=== PATIENT | female | born 1980 | race African-American/Black ===

== ENCOUNTER 2017-10-25 14:11 | Emergency (ER) | payer MEDICAID ==
[~2017-10-25] VITALS: Ht 167.6 cm; Wt 80.0 kg
[2017-10-25] MEDS ORDERED: SODIUM CHLORIDE 0.9% 1,000 ML IV ONE (14:30)
[2017-10-25 14:59] VITALS: BP 113/74
== END 2017-10-25 15:45 | disposition left against medical advice (07) ==
LOC: ER 14:40
DX: F10.129 Alcohol abuse with intoxication, unspecified (principal); Y90.9 Presence of alcohol in blood, level not specified
CPT/HCPCS: 99283; J7030

== ENCOUNTER 2018-11-28 00:13 | Emergency (ER) | payer MEDICAID ==
[~2018-11-28] VITALS: Ht 165.1 cm; Wt 105.0 kg
[2018-11-28 06:00] LABS: CHLORIDE 100 mEq/L (98-107)
[2018-11-28 06:10] LABS: EOSINOPHILS % 2.4 % (0.0-5.0); HEMOGLOBIN. 12.6 g/dL (12.0-16.0); LYMPHOCYTES % 28.5 % (20.0-50.0); MEAN CORPUSCULAR HEMOGLOBIN 26.7 pg (28.0-32.0); MEAN CORPUSCULAR VOLUME 82.6 fL (81.0-99.0); MEAN PLATELET VOLUME 8.4 fl (7.4-10.4); MONOCYTES % 12.3 % (2.0-8.0); NEUTROPHILS % 55.8 % (40.0-76.0); PLATELET 460 x1000/uL (130-400); RED BLOOD CELL COUNT 4.72 mill/uL (4.2-5.4); RED CELL DISTRIBUTION WIDTH 16.4 % (11.6-14.6)
[2018-11-28 06:54] LABS: CLARITY URINE TURBID (CLEAR); COLOR URINE DARK YELLOW (YELLOW); KETONES URINE TRACE (NEGATIVE); LEUKOCYTE ESTERASE URINE 1+ (NEGATIVE); NITRITE URINE NEGATIVE (NEGATIVE); OCCULT BLOOD URINE NEGATIVE (NEGATIVE); PROTEIN URINE 1+ (NEGATIVE); SPECIFIC GRAVITY URINE 1.026 (1.005-1.030)
[2018-11-28 07:12] LABS: *BARBITURATES SCREEN URINE NEGATIVE (NEGATIVE); *BENZODIAZEPINES SCREEN URINE NEGATIVE (NEGATIVE); *COCAINE SCREEN URINE NEGATIVE (NEGATIVE); METHADONE URINE SCREEN NEGATIVE (NEGATIVE); OPIATES URINE SCREEN NEGATIVE (NEGATIVE); PHENCYCLIDINE URINE SCREEN NEGATIVE (NEGATIVE)
[2018-11-28 07:18] LABS: *AMPHETAMINES SCREEN URINE PRESUMTIVE POSITIVE (NEGATIVE); CANNABINOID URINE SCREEN PRESUMTIVE POSITIVE (NEGATIVE)
[2018-11-28 08:00] VITALS: BP 120/79
[2018-11-28] MEDS ORDERED: POTASSIUM CHLORIDE 20MEQ TABLET SR PO ONE ×2 (08:21→09:00)
== END 2018-11-28 09:30 | disposition home or self-care (01) ==
LOC: ER 00:13
DX: E11.40 Type 2 diabetes mellitus with diabetic neuropathy, unspecified (principal); E87.6 Hypokalemia; N39.0 Urinary tract infection, site not specified; F15.10 Other stimulant abuse, uncomplicated; F12.90 Cannabis use, unspecified, uncomplicated; J45.909 Unspecified asthma, uncomplicated; I10 Essential (primary) hypertension; F17.200 Nicotine dependence, unspecified, uncomplicated; Z88.5 Allergy status to narcotic agent
CPT/HCPCS: 36415; 80305; 81025; 82962; 93005; 99284

== ENCOUNTER 2018-11-29 07:18 | Emergency (ER) | payer MEDICAID ==
[~2018-11-29] VITALS: Ht 165.1 cm; Wt 104.0 kg
[2018-11-29 07:47] VITALS: BP 139/76
== END 2018-11-29 11:00 | disposition left against medical advice (07) ==
LOC: ER 07:18
DX: Z53.21 Procedure and treatment not carried out due to patient leaving prior to being seen by health care provider (principal)

== ENCOUNTER 2018-11-29 20:12 | Emergency (ER) | payer MEDICAID ==
[~2018-11-29] VITALS: Ht 165.1 cm; Wt 109.0 kg
[2018-11-29 20:53] VITALS: BP 128/89
== END 2018-11-29 20:55 | disposition left against medical advice (07) ==
LOC: ER 20:12
DX: Z53.21 Procedure and treatment not carried out due to patient leaving prior to being seen by health care provider (principal)

== ENCOUNTER 2018-11-30 07:18 | Emergency (ER) | payer MEDICAID ==
[~2018-11-30] VITALS: Ht 172.7 cm; Wt 98.6 kg
[2018-11-30 07:47] VITALS: BP 106/88
== END 2018-11-30 09:32 | disposition left against medical advice (07) ==
LOC: ER 07:40
DX: R51 Headache (principal); Z53.21 Procedure and treatment not carried out due to patient leaving prior to being seen by health care provider

== ENCOUNTER 2020-11-13 12:19 | Emergency (ER) | payer MEDICAID ==
[~2020-11-13] VITALS: Ht 172.7 cm; Wt 89.0 kg
[2020-11-13 13:26] LABS: BASOPHILS % 1.1 % (0.0-2.0); EOSINOPHILS % 1.5 % (0.0-5.0); HEMATOCRIT. 40.8 % (36.0-48.0); HEMOGLOBIN. 13.1 g/dL (12.0-16.0); LYMPHOCYTES % 12.7 % (20.0-50.0); MEAN CORPUSCULAR VOLUME 83.8 fL (81.0-99.0); MEAN PLATELET VOLUME 9.1 fl (7.4-10.4); MONOCYTES % 12.6 % (2.0-8.0); NEUTROPHILS % 72.1 % (40.0-76.0); PLATELET 289 x1000/uL (130-400); RED BLOOD CELL COUNT 4.87 mill/uL (4.2-5.4); RED CELL DISTRIBUTION WIDTH 16.3 % (11.6-14.6)
[2020-11-13 13:37] LABS: CHLORIDE 102 mEq/L (98-107)
[2020-11-13 13:38] LABS: HCG SCREEN NEGATIVE
[2020-11-13 13:42] LABS: ETHANOL BLOOD 17 mg/dL
[2020-11-13 14:06] LABS: CLARITY URINE TURBID (CLEAR); KETONES URINE 1+ (NEGATIVE); LEUKOCYTE ESTERASE URINE 1+ (NEGATIVE); NITRITE URINE NEGATIVE (NEGATIVE); OCCULT BLOOD URINE 3+ (NEGATIVE); PROTEIN URINE 2+ (NEGATIVE); SPECIFIC GRAVITY URINE 1.028 (1.005-1.030)
[2020-11-13 14:11] LABS: COLOR URINE BLOODY (YELLOW)
[2020-11-13] MEDS ORDERED: NITROFURANTOIN 100MG M/M CAPSULE PO ONE (15:15)
[2020-11-13 15:25] LABS: *BARBITURATES SCREEN URINE NEGATIVE (NEGATIVE); *BENZODIAZEPINES SCREEN URINE NEGATIVE (NEGATIVE); *COCAINE SCREEN URINE NEGATIVE (NEGATIVE)
[2020-11-13 15:26] LABS: METHADONE URINE SCREEN NEGATIVE (NEGATIVE); OPIATES URINE SCREEN NEGATIVE (NEGATIVE); PHENCYCLIDINE URINE SCREEN NEGATIVE (NEGATIVE)
[2020-11-13 15:27] LABS: *AMPHETAMINES SCREEN URINE PRESUMTIVE POSITIVE (NEGATIVE); CANNABINOID URINE SCREEN PRESUMTIVE POSITIVE (NEGATIVE)
[2020-11-13] MEDS ORDERED: LORAZEPAM 1MG TABLET PO ONE (20:00)
[2020-11-13] MEDS ORDERED: QUETIAPINE FUMARATE 25MG TABLET PO SCH (21:00)
[2020-11-14] MEDS ORDERED: ACETAMINOPHEN 325MG TABLET PO ONE (02:15)
[2020-11-14 07:30] VITALS: BP 137/88
[2020-11-14] MEDS ORDERED: NITR100C MT (08:00)
== END 2020-11-14 08:26 | disposition home or self-care (01) ==
LOC: ER 12:19
DX: S09.8XXA Other specified injuries of head, initial encounter (principal); F32.9 Major depressive disorder, single episode, unspecified; R26.9 Unspecified abnormalities of gait and mobility; Z76.5 Malingerer [conscious simulation]; I10 Essential (primary) hypertension; F20.9 Schizophrenia, unspecified; J45.909 Unspecified asthma, uncomplicated; F15.10 Other stimulant abuse, uncomplicated; F12.10 Cannabis abuse, uncomplicated; N39.0 Urinary tract infection, site not specified; Z98.890 Other specified postprocedural states; Z88.5 Allergy status to narcotic agent; Z75.1 Person awaiting admission to adequate facility elsewhere; Z91.14 Patient's other noncompliance with medication regimen; Z03.818 Encounter for observation for suspected exposure to other biological agents ruled out; Z59.0 Homelessness; Y04.0XXA Assault by unarmed brawl or fight, initial encounter; Y93.89 Activity, other specified; Y92.89 Other specified places as the place of occurrence of the external cause
CPT/HCPCS: 36415; 71045; 80053; 80305; 80307; 80320; 80329; 81003; 81025; 84703; 85025; 87426; 99285; G0480

== ENCOUNTER 2020-11-14 09:14 | Emergency (ER) | payer MEDICAID ==
[~2020-11-14] VITALS: Ht 165.1 cm; Wt 97.0 kg
[~2020-11-14 09:14] MED LIST: NITR100C MT
[2020-11-14] MEDS ORDERED: OLANZAPINE 10MG TABLET PO SCH (09:45)
[2020-11-14 10:48] LABS: CLARITY URINE CLEAR (CLEAR); COLOR URINE YELLOW (YELLOW); KETONES URINE NEGATIVE (NEGATIVE); LEUKOCYTE ESTERASE URINE NEGATIVE (NEGATIVE); NITRITE URINE NEGATIVE (NEGATIVE); OCCULT BLOOD URINE NEGATIVE (NEGATIVE); PROTEIN URINE NEGATIVE (NEGATIVE); SPECIFIC GRAVITY URINE 1.036 (1.005-1.030)
[2020-11-14 11:20] LABS: *BARBITURATES SCREEN URINE NEGATIVE (NEGATIVE); *BENZODIAZEPINES SCREEN URINE NEGATIVE (NEGATIVE); *COCAINE SCREEN URINE NEGATIVE (NEGATIVE); METHADONE URINE SCREEN NEGATIVE (NEGATIVE); OPIATES URINE SCREEN NEGATIVE (NEGATIVE)
[2020-11-14 11:21] LABS: PHENCYCLIDINE URINE SCREEN NEGATIVE (NEGATIVE)
[2020-11-14 11:49] LABS: BASOPHILS % 1.5 % (0.0-2.0); EOSINOPHILS % 3.4 % (0.0-5.0); HEMATOCRIT. 39.2 % (36.0-48.0); HEMOGLOBIN. 12.6 g/dL (12.0-16.0); LYMPHOCYTES % 25.7 % (20.0-50.0); MEAN CORPUSCULAR HEMOGLOBIN 27.2 pg (28.0-32.0); MEAN CORPUSCULAR VOLUME 84.4 fL (81.0-99.0); MEAN PLATELET VOLUME 9.4 fl (7.4-10.4); MONOCYTES % 14.2 % (2.0-8.0); NEUTROPHILS % 55.2 % (40.0-76.0); PLATELET 278 x1000/uL (130-400); RED BLOOD CELL COUNT 4.65 mill/uL (4.2-5.4); RED CELL DISTRIBUTION WIDTH 16.6 % (11.6-14.6)
[2020-11-14 12:00] LABS: *AMPHETAMINES SCREEN URINE PRESUMTIVE POSITIVE (NEGATIVE); CANNABINOID URINE SCREEN PRESUMTIVE POSITIVE (NEGATIVE)
[2020-11-14 12:01] LABS: CHLORIDE 102 mEq/L (98-107)
[2020-11-14 12:10] LABS: ETHANOL BLOOD < 10 mg/dL
[2020-11-14 12:14] LABS: HCG SCREEN NEGATIVE
[2020-11-14 15:55] VITALS: BP 128/77
== END 2020-11-14 16:00 | disposition home or self-care (01) ==
LOC: ER 09:20
DX: F20.9 Schizophrenia, unspecified (principal); F15.10 Other stimulant abuse, uncomplicated; R45.851 Suicidal ideations; F12.10 Cannabis abuse, uncomplicated; F31.9 Bipolar disorder, unspecified; J45.909 Unspecified asthma, uncomplicated; E66.9 Obesity, unspecified; Z59.0 Homelessness; Z98.890 Other specified postprocedural states; Z68.35 Body mass index [BMI] 35.0-35.9, adult; Z88.5 Allergy status to narcotic agent
CPT/HCPCS: 36415; 80053; 80305; 80307; 80320; 80329; 81003; 81025; 84703; 85025; 99283; G0480

== ENCOUNTER 2021-11-09 11:01 | Emergency (ER) | payer MEDICAID ==
[~2021-11-09] VITALS: Ht 165.1 cm; Wt 80.0 kg
[2021-11-09] MEDS: AZITHROMYCIN 500 MG TABLET PO ONE (14:11)
[2021-11-09] MEDS: CEFTRIAXONE SODIUM 500 MG/VIAL IM ONE (14:11)
[2021-11-09 14:17] LABS: CHLORIDE 103 mEq/L (98-107)
[2021-11-09 14:21] LABS: ETHANOL BLOOD < 10 mg/dL
[2021-11-09 14:24] LABS: HEMATOCRIT. 37.4 % (36.0-48.0); HEMOGLOBIN. 12.4 g/dL (12.0-16.0); MEAN CORPUSCULAR VOLUME 84.8 fL (81.0-99.0); MEAN PLATELET VOLUME 8.5 fl (7.4-10.4); PLATELET 305 x1000/uL (130-400); RED BLOOD CELL COUNT 4.41 mill/uL (4.2-5.4)
[2021-11-09 14:40] LABS: CLARITY URINE CLOUDY (CLEAR); COLOR URINE YELLOW (YELLOW); KETONES URINE NEGATIVE (NEGATIVE); LEUKOCYTE ESTERASE URINE NEGATIVE (NEGATIVE); NITRITE URINE NEGATIVE (NEGATIVE); OCCULT BLOOD URINE NEGATIVE (NEGATIVE); PROTEIN URINE TRACE (NEGATIVE); SPECIFIC GRAVITY URINE 1.029 (1.005-1.030)
[2021-11-09 14:45] LABS: CANNABINOID URINE SCREEN NEGATIVE (NEGATIVE)
[2021-11-09 14:46] LABS: *BARBITURATES SCREEN URINE NEGATIVE (NEGATIVE)
[2021-11-09 14:47] LABS: *BENZODIAZEPINES SCREEN URINE NEGATIVE (NEGATIVE); METHADONE URINE SCREEN NEGATIVE (NEGATIVE)
[2021-11-09 14:49] LABS: OPIATES URINE SCREEN NEGATIVE (NEGATIVE)
[2021-11-09 14:50] LABS: *COCAINE SCREEN URINE NEGATIVE (NEGATIVE); PHENCYCLIDINE URINE SCREEN NEGATIVE (NEGATIVE)
[2021-11-09 14:52] LABS: PLATELET ESTIMATE NORMAL
[2021-11-09 15:05] LABS: *AMPHETAMINES SCREEN URINE PRESUMTIVE POSITIVE (NEGATIVE)
[2021-11-09] MEDS: METFORMIN HCL 500MG TABLET PO ONE (16:15)
[2021-11-10] MEDS: IBUPROFEN 600MG TABLET PO ONE (04:26)
[2021-11-10] MEDS: ALBUTEROL 6.7GM HFA INHALER ORI ONE (08:55)
[2021-11-10] MEDS: ACETAMINOPHEN 325MG TABLET PO ONE (18:57)
[2021-11-10] MEDS: QUETIAPINE FUMARATE 25MG TABLET PO SCH (21:00)
[2021-11-11 06:00] VITALS: BP 176/99
[2021-11-11] MEDS ORDERED: TOPUD PO (09:08)
[2021-11-14 04:07] LABS: NEISSERIA GONORRHOEAE NAA Negative (Negative)
== END 2021-11-11 10:12 | disposition home or self-care (01) ==
LOC: ER 11:01
DX: U07.1 COVID-19 (principal); F25.9 Schizoaffective disorder, unspecified; R45.851 Suicidal ideations; J45.909 Unspecified asthma, uncomplicated; E78.00 Pure hypercholesterolemia, unspecified; I10 Essential (primary) hypertension; E11.9 Type 2 diabetes mellitus without complications; F15.10 Other stimulant abuse, uncomplicated; F12.10 Cannabis abuse, uncomplicated; Z75.1 Person awaiting admission to adequate facility elsewhere; Z59.00 Homelessness unspecified; Z98.890 Other specified postprocedural states; Z88.5 Allergy status to narcotic agent
CPT/HCPCS: 36415; 71045; 80053; 80305; 80307; 80320; 81003; 81025; 82542; 85025; 87426; 87491; 87591; 87635; 96372; 99285; J0696; G0480

== ENCOUNTER 2022-07-08 16:54 | Emergency (ER) | payer MEDICAID ==
[~2022-07-08] VITALS: Ht 165.1 cm; Wt 100.0 kg
[~2022-07-08 16:54] MED LIST changes: +TOPUD PO
[2022-07-08 17:32] VITALS: BP 211/147
[2022-07-09] MEDS ORDERED: SULF1TAB48 PO (07:49)
[2022-07-09] MEDS ORDERED: TOPUD PO (07:49)
[2022-07-09] MEDS ORDERED: CEPH500C2 PO (07:49)
== END 2022-07-08 21:57 | disposition left against medical advice (07) ==
LOC: ER 16:54
DX: Z53.21 Procedure and treatment not carried out due to patient leaving prior to being seen by health care provider (principal)

== ENCOUNTER 2022-07-09 07:12 | Emergency (ER) | payer MEDICAID ==
[~2022-07-09] VITALS: Ht 165.1 cm; Wt 97.0 kg
[2022-07-09] MEDS ORDERED: KETOROLAC 60MG/2ML VIAL IM ONE (07:45)
[2022-07-09] MEDS ORDERED: TOPUD PO (07:49)
[2022-07-09] MEDS ORDERED: SULF1TAB48 PO (07:49)
[2022-07-09] MEDS ORDERED: CEPH500C2 PO (07:49)
[2022-07-09 08:08] VITALS: BP 173/94
== END 2022-07-09 08:17 | disposition home or self-care (01) ==
LOC: ER 07:12
DX: L03.211 Cellulitis of face (principal); L73.9 Follicular disorder, unspecified; J45.909 Unspecified asthma, uncomplicated; F31.9 Bipolar disorder, unspecified; I10 Essential (primary) hypertension; F20.9 Schizophrenia, unspecified; Z88.6 Allergy status to analgesic agent
CPT/HCPCS: 96372; 99284; J1885

== ENCOUNTER 2022-09-18 15:34 | Emergency (ER) | payer MEDICAID ==
[~2022-09-18] VITALS: Ht 167.6 cm; Wt 99.0 kg
[~2022-09-18 15:34] MED LIST changes: +CEPH500C2 PO; +SULF1TAB48 PO
[2022-09-18 15:57] VITALS: BP 147/92
[2022-09-18 20:48] LABS: CLARITY URINE CLEAR (CLEAR); COLOR URINE YELLOW (YELLOW); KETONES URINE NEGATIVE (NEGATIVE); LEUKOCYTE ESTERASE URINE NEGATIVE (NEGATIVE); NITRITE URINE NEGATIVE (NEGATIVE); OCCULT BLOOD URINE NEGATIVE (NEGATIVE); PROTEIN URINE NEGATIVE (NEGATIVE); SPECIFIC GRAVITY URINE 1.008 (1.005-1.030); UROBILINOGEN URINE 0.2 E.U./dL (0.2-1.0)
[2022-09-18] MEDS ORDERED: ACETAMINOPHEN 325MG TABLET PO ONE (21:00)
[2022-09-18] MEDS ORDERED: TOPUD MT (22:28)
== END 2022-09-18 22:48 | disposition home or self-care (01) ==
LOC: ER 15:34
DX: R51.9 Headache, unspecified (principal); R10.9 Unspecified abdominal pain; J45.909 Unspecified asthma, uncomplicated; F31.9 Bipolar disorder, unspecified; E11.9 Type 2 diabetes mellitus without complications; E78.00 Pure hypercholesterolemia, unspecified; I10 Essential (primary) hypertension; F20.9 Schizophrenia, unspecified; Z88.6 Allergy status to analgesic agent
CPT/HCPCS: 70450; 81003; 81025; 99284; Z7610

== ENCOUNTER 2023-03-25 15:26 | Emergency (ER) | payer MEDICAID ==
[~2023-03-25] VITALS: Ht 167.6 cm; Wt 100.0 kg
[~2023-03-25 15:26] MED LIST changes: +TOPUD MT
[2023-03-25 16:37] LABS: HEMATOCRIT. 37.5 % (36.0-48.0); HEMOGLOBIN. 11.8 g/dL (12.0-16.0); MEAN CORPUSCULAR VOLUME 79.2 fL (81.0-99.0); MEAN PLATELET VOLUME 8.9 fl (7.4-10.4); PLATELET 383 x1000/uL (130-400); RED BLOOD CELL COUNT 4.73 mill/uL (4.2-5.4); RED CELL DISTRIBUTION WIDTH 17.6 % (11.6-14.6)
[2023-03-25 16:59] LABS: CHLORIDE 106 mEq/L (98-107)
[2023-03-25 17:11] LABS: PLATELET ESTIMATE NORMAL
[2023-03-25 23:04] LABS: CLARITY URINE TURBID (CLEAR); COLOR URINE YELLOW (YELLOW); KETONES URINE NEGATIVE (NEGATIVE); LEUKOCYTE ESTERASE URINE NEGATIVE (NEGATIVE); NITRITE URINE NEGATIVE (NEGATIVE); OCCULT BLOOD URINE NEGATIVE (NEGATIVE); PH URINE 5.5 (4.5-8.0); PROTEIN URINE 1+ (NEGATIVE); SPECIFIC GRAVITY URINE 1.024 (1.005-1.030)
[2023-03-25 23:23] LABS: *BARBITURATES SCREEN URINE NEGATIVE (NEGATIVE); *BENZODIAZEPINES SCREEN URINE NEGATIVE (NEGATIVE); *COCAINE SCREEN URINE NEGATIVE (NEGATIVE); METHADONE URINE SCREEN NEGATIVE (NEGATIVE); OPIATES URINE SCREEN NEGATIVE (NEGATIVE); PHENCYCLIDINE URINE SCREEN NEGATIVE (NEGATIVE)
[2023-03-25 23:35] LABS: *AMPHETAMINES SCREEN URINE PRESUMTIVE POSITIVE (NEGATIVE)
[2023-03-25 23:36] LABS: CANNABINOID URINE SCREEN PRESUMTIVE POSITIVE (NEGATIVE)
[2023-03-26] MEDS ORDERED: ASPIRIN 325MG EC TABLET PO NR (03:45)
[2023-03-26 04:49] LABS: HCG SCREEN NEGATIVE
[2023-03-26] MEDS ORDERED: ACETAMINOPHEN 325MG TABLET PO ONE (13:30)
[2023-03-26 13:34] VITALS: BP 157/86
== END 2023-03-26 13:56 | disposition short-term general hospital (02) ==
LOC: ER 15:33
DX: T43.621A Poisoning by amphetamines, accidental (unintentional), initial encounter (principal); R53.1 Weakness; I21.4 Non-ST elevation (NSTEMI) myocardial infarction; I10 Essential (primary) hypertension; E11.9 Type 2 diabetes mellitus without complications; E78.00 Pure hypercholesterolemia, unspecified; F20.9 Schizophrenia, unspecified; J45.909 Unspecified asthma, uncomplicated; Y92.89 Other specified places as the place of occurrence of the external cause
CPT/HCPCS: 36415; 71045; 80053; 80305; 80307; 80329; 81003; 83880; 84484; 84703; 85025; 93005; 99285